=== PATIENT | female | born 1985 | race African-American/Black ===

== ENCOUNTER 2018-01-12 14:37 | Emergency (ER) | payer SELFPAY ==
[~2018-01-12 14:37] MED LIST: ISOVUE-370 76%-LOCM 1 ML ONE
[2018-01-12 15:05] LABS: Hemoglobin 7.9 g/dL (12.0-16.0); Mean Corpuscular HGB CONC 28.7 g/dL (32.0-36.0); Mean Corpuscular Volume 62.8 fL (78.0-98.0); Mean Platelet Volume 6.7 fL (7.4-10.4); Platelet Count 356 thou/uL (130-400); RBC Distribution Width 20.1 % (11.5-14.5); Red Blood Cell (RBC) Count 4.36 mill/uL (4.20-5.40); White Blood Cell (WBC) Count 6.2 thou/uL (4.8-10.8)
[2018-01-12 15:14] LABS: Bilirubin Negative (Negative); Blood, Urine Moderate (Negative); Clarity CLOUDY (Clear); Glucose, Urine (Dipstick) Negative (Negative); Leukocyte Negative (Negative); Nitrite Negative (Negative); Protein, Urine (Dipstick) Negative (Neg-Trace); Urobilinogen 0.2 mg/dL (0.2-1.0); pH, Urine 7.5 (5.0-9.0)
[2018-01-12 15:16] LABS: Hyaline Casts/LPF 0-3 HYALINE CAST LPF (0-3 Hyaline); Pathc Cast-AUWi Flag 0.72 (0-2.49)
[2018-01-12 15:26] LABS: Acanthocytes SLIGHT = 1-5 cells (100X) (None Seen); Anisocytosis SLIGHT = 6-15 cells (100X) (0-5/hpf); Elliptocytes SLIGHT = 2-5 cells (100X) (0-1/hpf); Eosinophils 3 % (0-10); Hypochromia MODERATE=16-30 cells (100X) (0-5/hpf); Lymphocytes 54 % (21-51); MDiff Complete? YES; Microcytosis MODERATE=15-30 cells (100X) (0-5/hpf); Monocytes 4 % (0-10); Neutrophil 39 % (42-75); PLT Morphology Comment Appears Adequate; Poikilocytosis SLIGHT = 6-15 cells (100X) (0-5/hpf)
[2018-01-12 15:36] LABS: Bacteria/HPF 2+ HPF (None Seen); RBC/HPF 0-3 HPF (0-3); Yeast-All Forms None Seen HPF (None Seen)
[2018-01-12 15:48] LABS: ALT (SGPT) 11 U/L (8-55); AST (SGOT) 13 U/L (5-34); Albumin 4.1 g/dL (3.5-5.0); Alkaline Phosphatase 80 U/L (40-150); Anion Gap 11 mmol/L (10-20); BUN (Urea Nitrogen) 10 mg/dL (7.0-18.7); Bilirubin, Total 0.2 mg/dL (0.2-1.2); Calc. Creatinine Clearance 0 mL/min (70-130); Calcium 10.7 mg/dL (7.8-10.44); Carbon Dioxide 19 mmol/L (22-29); Chloride 113 mmol/L (98-107); Estimated GFR-MDRD Greater than 90; Globulin 3.9 g/dL (2.4-3.5); Glucose 92 mg/dL (70-105); Potassium 3.5 mmol/L (3.5-5.1); Sodium 139 mmol/L (136-145)
--- NOTE | 2018-01-12 17:46 | ULT ---
PELVIC ULTRASOUND History: Vaginal bleeding with black discharge, starting suddenly after work yesterday. Adnexal pain. Positive test three weeks ago. Serum Beta HG is less than 1.2 Technique: Transabdominal and endovaginal imaging of the pelvis is performed. Ovaries are interrogate d with grayscale, color flow, doppler imaging, and spectral waveform analysis. FINDINGS: Uterus is identified, measuring 8.2 x 9.2 x 11.5 cm. Endometrium is not adequately access. There does appear to be a solid structure or mass like structure in the uterine fundus measuring approximately 6.5 x 5.5 x 7.8 cm. Left ovary is not appreciated. No masses or fluid in the left adnexa. In the right adnexa there is an anechoic focus measuring 5.2 x 4.2 x 5.5 cm. Right ovarian cyst is fa vored. Overall, the right ovary measures 4.4 x 6.6 x 6.0 cm. Small amount of free fluid in the cul-de-sac. IMPRESSION: 1. Soft tissue mass noted in the uterine fundus. Correlate for uterine leiomyoma. 2. Heterogeneous appearance of the endometrium, secondary to aforementioned fundal mass. No definite evidence of a gestational sac, yolk sac, or pole. Correlate with follow up ultrasound and seria l Beta HCGs. 3. Right ovarian cyst. Follow up ultrasound to ensure resolution in 4-6 weeks. POS: [facility]
--- NOTE | 2018-01-12 19:42 | CT ---
CT ABDOMEN AND PELVIS WITH CONTRAST: History: Positive test three weeks ago. Serum Beta HCG less than 1.2. Abnormal pelvic ultra sound. Possible uterine mass. Right ovarian cyst. Correlation: Pelvic ultrasound, 01-12-18 FINDINGS: Dependent atelectatic changes. Normal heart size. No significant paracardial fluid. Visualized aorta has a normal caliber. No fat stranding. Portal vein is patent. The liver, spleen, pancreas and adrenal glands have appropriate enhancement. Symmetric enhancement of the kidneys. Bilaterally, no obstructive uropathy. Tiny umbilical hernia containing mesenteric fat. No gastrohepatic, retrocrural or periportal lymphadenopathy. No mesenteric mass, lymphadenopathy, free air or free fluid. Limited evaluation of the alimentary canal due to lack of oral contrast. Gastric mucosa, duodenum and multiple normal caliber small bowel loops are noted. Ileocecal junction is normal. Normal caliber ap pendix. Scattered fecal material in a nondistended, nondilated colon. PELVIC CT: There is an enhancing heterogenous solid mass in the uterine fundus measuring 7.4 cm craniocaudal x 6 .3 cm mediolateral x 7.4 cm anterior posterior. Uterine leiomyoma is favored. There appears to be pierre e fluid in the lower uterine segment. Left adnexa is unremarkable. Right ovarian cyst is noted. Unremarkable urinary bladder. IMPRESSION: 1. Enhancing solid mass in the uterine fundus, likely representing a leiomyoma. 2. Right ovarian cyst. 3. Normal caliber appendix. POS: [facility]
[2018-01-13 22:04] LABS: Chlamydia by PCR Not Detected (NotDetected); GC by PCR Not Detected (NotDetected)
== END 2018-01-12 19:56 | disposition home or self-care (01) ==
LOC: ERS 14:37
DX: N76.0 Acute vaginitis (principal); N83.201 Unspecified ovarian cyst, right side; N85.8 Other specified noninflammatory disorders of uterus; F17.210 Nicotine dependence, cigarettes, uncomplicated
CPT/HCPCS: 36415; 74177; 76856; 80053; 81003; 81015; 84702; 85025; 85060; 86850; 86900; 86901; 87480; 87491; 87510; 87591; 87660

== ENCOUNTER 2018-05-24 16:37 | Observation (INO) | payer SELFPAY ==
[2018-05-24 20:10] VITALS: BMI 38.8
[2018-05-24] MEDS ORDERED: Acetaminophen 500 MG TAB PO PRN (21:37)
[2018-05-24] MEDS ORDERED: Ondansetron ODT 4 MG TAB PO PRN (21:37)
[2018-05-24] MEDS ORDERED: Ondansetron PF 4 MG/2 ML Vial IVP PRN (21:37)
[2018-05-25] MEDS: Sodium Chloride 0.9% 1,000 ML IV SCH ×2 (00:39→13:00)
--- NOTE | 2018-05-25 01:18 | HP ---
PRIMARY CARE PROVIDER: Maximilian Yi. CHIEF COMPLAINT: Dizziness and vaginal bleeding. HISTORY OF PRESENT ILLNESS: This is a 33-year-old female, who initially presented to [facility] complaining of increasing dizziness over the last 24 to 48 hours while standing. The patient also noted heavy vaginal bleeding at the end of her regular menses, passing large clots. The patient states she has had irregular menstrual cycles starting in November 2017, continuing into early 2018. The patient states she does not have typical 4-week break between cycles and has bleeding every couple of weeks, lasting 5 days or more. The patient admits to a history of anemia, and states her hemoglobin had been in the 9 to 10 range previously, but did not take any iron supplementation or receive any previous blood transfusions. The patient states she has had 3 pregnancies with section deliveries, most recently in 2010; at which time, she underwent tubal ligation. The patient denied any recent vaginal trauma, dysuria, or difficulty with bowel movements. The patient denied any cough, fever, history of sexually transmitted diseases, vaginal discharge other than the blood. In the emergency room, the patient was evaluated with a hemoglobin noted at 6.1 with an MCV of 64. The patient was typed and crossed and initiated on 1 unit of packed red blood cells with a second unit of packed red blood cells hanging currently. Serum beta-hCG was negative. PAST MEDICAL HISTORY: 1. Chronic anemia. 2. Tobacco use. PAST SURGICAL HISTORY: Status post section x3, last performed 2010 with bilateral tubal ligation. CURRENT MEDICATIONS: Reviewed and negative. ALLERGIES: NO KNOWN DRUG ALLERGIES. FAMILY HISTORY: No inheritable disease per the patient's report. SOCIAL HISTORY: The patient resides in [place], [place]. Works for [employer]. Smokes up to half a pack of cigarettes daily. Occasional alcohol use. No illicit drug use. Functional of all activities of daily living. REVIEW OF SYSTEMS: CONSTITUTIONAL: Negative for weight loss or gain, ability to conduct usual activities. SKIN: Negative for rash, itching. EYES: Negative for double vision, pain. ENT/MOUTH: Negative for nose bleeding, neck stiffness, pain, tenderness. CARDIOVASCULAR: Negative for palpitations, dyspnea on exertion, orthopnea. RESPIRATORY: Negative for shortness of breath, wheezing, cough, hemoptysis, fever or night sweats. GASTROINTESTINAL: Negative for poor appetite, abdominal pain, heartburn, nausea, vomiting, constipation, or diarrhea. GENITOURINARY: Negative for urgency, frequency, dysuria, nocturia. MUSCULOSKELETAL: Negative for pain, swelling. NEUROLOGIC/PSYCHIATRIC: Negative for anxiety, depression. ALLERGY/IMMUNOLOGIC: Negative for skin rash, bleeding tendency. Otherwise, negative except as stated per HPI. PHYSICAL EXAMINATION: VITAL SIGNS: On admission, blood pressure 146/87, pulse 83, respiratory rate 19, temperature 98 degrees Fahrenheit, and O2 saturation 99% on room air. GENERAL APPEARANCE: This is a 33-year-old female, alert and oriented x3, pleasant, conversant, in no acute distress. HEENT: Pupils are equal, round, reactive to light and accommodation. Extraocular muscles are intact. Mild conjunctival pallor. Nares patent. OP is clear. Teeth in fair repair. NECK: Supple. No cervical adenopathy. No thyromegaly. No carotid bruits. No JVD appreciated. Cervical spine with full active and passive range of motion. No meningeal signs noted. CHEST: Lungs are clear to auscultation bilaterally. CARDIOVASCULAR: S1 and S2 without noted murmur, rub, or gallop. ABDOMEN: Rounded, soft, nontender, and nondistended. Bowel sounds are positive in all 4 quadrants. There is no hepatosplenomegaly. No abdominal bruits. No rebound or guarding appreciated. PELVIC: Reported from the emergency room showed blood at the introitus. No evidence of external injury. EXTREMITIES: Warm and dry with fair turgor. No clubbing, cyanosis, or asymmetric edema appreciated. Pulses are palpable distally at the dorsalis pedis, posterior tibial, and popliteal arteries bilaterally. Capillary refill less than 2 seconds. NEUROLOGIC: Cranial nerves 2 through 12 are grossly intact. No focal or lateralizing signs appreciated. PERTINENT LAB AND X-RAY FINDINGS: Sodium 138, potassium 4.0, chloride 110, CO2 of 20, BUN 8, creatinine 0.65, estimated GFR greater than 90, glucose 86, calcium 10.3. LFTs within normal limits. Serum beta-hCG negative on 05/24/2018. CBC showed a white blood cell count of 5.4, hemoglobin 6.1, hematocrit 22, MCV 64, platelet count 416, with normal differential. PT is 13.8, INR 1.1, PTT 34.2. EKG dated 05/24/2018 by my interpretation shows sinus mechanism with heart rates in the 60s. Normal R-wave progression noted in the precordial leads. Normal axis. No acute ST-T wave changes appreciated. ASSESSMENT AND PLAN: 1. Acute blood loss anemia. The patient will be placed in observation status. Secondarily to #2. Type and cross for 2 units of packed red blood cells. Serial hemoglobin and hematocrit monitoring. Check iron studies and ferritin in the a.m. 2. Menorrhagia. Suspect secondary to uterine fibroid. The patient with a history of uterine fibroid noted several years prior to this evaluation. We will consult [employer]PER[employer] Service for further evaluation. Check pelvic ultrasound. Serum beta-hCG negative. See above for management. 3. Symptomatic anemia. See #1 and #2. We will continue transfusion of packed red blood cells. Continue intravenous normal saline at 100 mL/h. 4. Tobacco use. We will offer smoking cessation resources prior to discharge. 5. Prophylaxis. SCDs while in bed. Pepcid 20 mg p.o. b.i.d. 6. Code status is full. Surrogate medical decision maker is Isaura Huston. Job ID: [id number]
[2018-05-25 05:47] LABS: Band 6 % (5-11); Elliptocytes SLIGHT = 2-5 cells (100X) (0-1/hpf); Eosinophils 1 % (0-10); Hemoglobin 8.4 g/dL (12.0-16.0); Hypochromia MODERATE=16-30 cells (100X) (0-5/hpf); Iron 25 ug/dL (50-170); Iron Binding Capacity, Total 425 mcg/dL (265-497); Lymphocytes 40 % (21-51); MDiff Complete? YES; Mean Corpuscular HGB CONC 30.5 g/dL (32.0-36.0); Mean Corpuscular Hemoglobin 21.5 pg (27.0-31.0); Mean Corpuscular Volume 70.5 fL (78.0-98.0); Mean Platelet Volume 11.2 fL (7.4-10.4); Microcytosis SLIGHT = 6-15 cells (100X) (0-5/hpf); Monocytes 5 % (0-10); Neutrophil 48 % (42-75); Platelet Count 368 thou/uL (130-400); Platelet Morphology Comment Appears Adequate; RBC Distribution Width 21.2 % (11.5-14.5)
[2018-05-25 05:49] LABS: Anion Gap 11 mmol/L (10-20); BUN (Urea Nitrogen) 12 mg/dL (7.0-18.7); Calc. Creatinine Clearance 197 mL/min (70-130); Carbon Dioxide 19 mmol/L (22-29); Chloride 109 mmol/L (98-107); Estimated GFR-MDRD Greater than 90; Glucose 95 mg/dL (70-105); Iron 26 ug/dL (50-170); Iron Binding Capacity, Total 428 mcg/dL (265-497); Potassium 3.8 mmol/L (3.5-5.1); Sodium 135 mmol/L (136-145)
[2018-05-25] MEDS ORDERED: Ferrous Sulfate 325 MG TAB PO SCH (08:00)
[2018-05-25] MEDS ORDERED: Famotidine 20 MG TAB PO SCH (09:00)
--- NOTE | 2018-05-25 09:32 | PDOC.FPROB ---
FMR OB H&P: HPI - History of Present Illness Chief Complaint: CONSULT NOTE History of Present Illness: 33 yo f presents as a transfer from [facility] for symptomatic anemia and abnormal uterine bleeding. She endorses irregular and heavy menses and states that the past two days she has passed golf ball sized clots. Yesterday she started feeling dizzy, which is why she went to the [facility] ER. She reports that she went two months from November to January without a period, and in January developed heavy bleeding and at that time had a pelvic us done which showed a fibroid. Since that time she has been bleeding on and off without longer than 2 wks of a true break in her cycle. Today she states her bleeding is improved, and is light/minimal. She was able to ambulate today and eat breakfast and doesn 't feel dizzy this morning. She has had 2u prbcs. 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: irregular menses/AUB uterine fibroid - Surgical History Sx History: see ob hx - Social History Social History: smokes a pack every 3 days, occasional alcohol use, denies drug use - Family History Family History: denies family hx of ovarian/uterine/breast cancer FMR OB H&P: Medications - Current Home Medications: Medication Instructions Recorded Confirmed Type Ferrous Sulfate [Feosol] 325 mg PO BID- #60 tab 05/25/18 Rx medroxyPROGESTERone Acetate 10 mg PO DAILY #20 tab 05/25/18 Rx [Provera] Allergies/Adverse Reactions: Allergies Allergy/AdvReac Type Severity Reaction Status Date / Time No Known Drug Allergies Allergy Verified 05/24/18 20:08 FMR OB H&P: ROS - Review of Systems General: denies: fever/chills, weight/appetite/sleep changes ENT: denies: nasal congestion, rhinorrhea Respiratory: denies: cough, congestion, shortness of breath Gastrointestinal: denies: abdominal pain, nausea, vomiting, diarrhea Genitourinary (Female): reports: hematuria, vaginal bleeding. denies: contractions Neurologic: reports: weakness, other (dizziness) Breast: denies: bumps, skin changes Endocrine: denies: cold intolerance, heat intolerance Hematologic/Lymphatic: reports: prolonged or excessive bleeding Psychological: denies: depression, anxiety FMR OB H&P: Vital Signs - Maternal Vital signs: Vital Signs - First Documented Temp Pulse Resp BP Pulse Ox 97.7 F 77 15 107/62 95 05/24/18 19:58 05/24/18 19:58 05/24/18 19:58 05/24/18 19:58 05/24/18 19:58 Selected Entries 05/25/18 08:00 Temperature 97.9 F Pulse Rate 58 L Respiratory 16 Rate O2 Sat by Pulse 99 Oximetry Oxygen Delivery Room Air Method FMR OB H&P: Physical Exam - Physical Exam General: NAD, awake, alert and oriented HEENT: normocephalic and atraumatic, PERRLA Neck: supple Deviation from normal: NSR Deviation from normal: no increased work of breathing Abdomen: soft Deviation from normal: ~16wk uterus, fundal fibroid present on exam; mild tenderness to palpation Skin: no rash, capillary refill <2 seconds Lymphatic: no unusual bruising or bleeding, no purpura Psychiatric: intact recent and remote memory, good judgement and insight FMR OB H&P: Results - Labs Lab results: Laboratory Results - last 24 hr 05/24/18 05/25/18 05/25/18 20:01 04:30 04:30 WBC 7.0 RBC 3.90 L Hgb 8.4 L Hct 27.5 L MCV 70.5 L MCH 21.5 L MCHC 30.5 L RDW 21.2 H Plt Count 368 MPV 11.2 H Neutrophils % (Manual) 48 Band Neuts % (Manual) 6 Lymphocytes % (Manual) 40 Monocytes % (Manual) 5 Eosinophils % (Manual) 1 Hypochromia MODERATE=16-30 cells H Plt Morphology Comment Appears Adequate Microcytosis SLIGHT = 6-15 cells Elliptocytes SLIGHT = 2-5 cells Sodium 135 L Potassium 3.8 Chloride 109 H Carbon Dioxide 19 L Anion Gap 11 BUN 12 Creatinine 0.63 Estimated GFR (MDRD) Greater than 90 Glucose 95 Calcium 10.0 Iron 26 L TIBC 428 % Saturation Ferritin Blood Type O POSITIVE Antibody Screen NEGATIVE Crossmatch See Detail 05/25/18 05/25/18 04:30 04:30 WBC RBC Hgb Hct MCV MCH MCHC RDW Plt Count MPV Neutrophils % (Manual) Band Neuts % (Manual) Lymphocytes % (Manual) Monocytes % (Manual) Eosinophils % (Manual) Hypochromia Plt Morphology Comment Microcytosis Elliptocytes Sodium Potassium Chloride Carbon Dioxide Anion Gap BUN Creatinine Estimated GFR (MDRD) Glucose Calcium Iron 25 L TIBC 425 % Saturation 6 L Ferritin 5.58 L Blood Type Antibody Screen Crossmatch Other labs: Laboratory Tests 05/24/18 13:24 Hgb 6.1 L Hct 21.6 L FMR OB H&P: A/P - Problem List (1) Symptomatic anemia Status: Acute Code(s): D64.9 - ANEMIA, UNSPECIFIED (2) Abnormal uterine bleeding Status: Acute Code(s): N93.9 - ABNORMAL UTERINE AND VAGINAL BLEEDING, UNSPECIFIED (3) Uterine fibroid Status: Acute Code(s): D25.9 - LEIOMYOMA OF UTERUS, UNSPECIFIED Discussion: Date/Time: 05/25/18 0927 33 yo f presents with irregular/heavy menstruation admitted for symptomatic anemia and abnormal uterine bleeding 2/2 uterine fibroid. #Symptomatic Anemia- -Suspected d/t AUB from pt's fibroid. Pt s/p 2 units prbcs with initial H/H of 6.1/21.6 and repeat of 8.4/27.5. Pt improved and asymptomatic this morning. 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 Dispo: plan for dc this pm with close follow-up outpatient regarding AUB/fibroid Code: FULL This H&P was discussed with Dr. Arzola who agree with the above documentation and plan. Addendum - Attending - Attending Attestation Date/Time: 05/25/18 182 I personally evaluated the patient and discussed the management with Dr. Clemons. I agree with the History, Examination, Assessment and Plan documented above with any addition or exceptions noted below. Ultrasound results stable from prior US. Follow up outpatient for management.
--- NOTE | 2018-05-25 11:48 | ULT ---
FPelvic ultrasound: 05/25/2018 COMPARISON: 01/12/2018 HISTORY: Uterine fibroid disease, vaginal bleeding requiring transfusions TECHNIQUE: Multiplanar grayscale sonographic imaging of the pelvis is obtained with transabdominal an d endovaginal imaging. The ovaries are assessed with color flow and spectral analysis FINDINGS: The uterus measures 12.2 x 7.7 x 13.7 cm. There is a large heterogeneously hypoechoic solid mass associated with the posterior uterine body which is centered within the myometrium but has a carlos bmucosal component which abuts the posterior aspect of the endometrium, which is distorted. This lesi on suggests a uterine fibroid, measuring in the 6.7 x 6.6 cm range, similar when compared to the prio r examination. The endometrium is difficult to accurately measure secondary to distortion. No significant free fluid is noted in the pelvis. Blood flow appears present within the right ovary. Blood flow could not be documented within the left ovary, likely secondary to location and patient's size as the left ovary is normal in size and demonstrates no adjacent fluid. Left ovary measures appr oximately 2.0 x 3.1 x 2.3 cm right ovary measures approximately 3.1 x 3.6 x 2.2 cm. IMPRESSION: Large solid lesion associated with the uterine body consistent with a large fibroid, rainer lar in size when compared to prior imaging. This abuts and distorts the posterior aspect of the endom etrium.
[2018-05-25 14:18] LABS: Hemoglobin 9.2 g/dL (12.0-16.0)
[2018-05-25 15:55] VITALS: BP 129/62; TEMP 98
== END 2018-05-25 17:15 | disposition home or self-care (01) ==
LOC: 2SW 18:26
PROVIDERS: ADMIT Internal Medicine; ATTEND Internal Medicine
DX: D62 Acute posthemorrhagic anemia (principal); D25.9 Leiomyoma of uterus, unspecified; F17.210 Nicotine dependence, cigarettes, uncomplicated; Z98.51 Tubal ligation status; Z79.52 Long term (current) use of systemic steroids; Z79.899 Other long term (current) drug therapy; Z98.890 Other specified postprocedural states
CPT/HCPCS: 36415; 76856; 80048; 82728; 83540; 83550; 85007; 85027; 86850; 86900; 86901; 96360; 96361; G0378; P9016

== ENCOUNTER 2023-11-12 21:11 | Observation (INO) | payer OTHER ==
[2023-11-12] MEDS ORDERED: Acetaminophen 325 MG TAB ONE (22:57)
[2023-11-12 23:28] LABS: #Basophils 0.06 10x3/uL (0.0-0.2); %Basophils 1.1 % (0.0-1.0); %Eosinophils 4.3 % (0.0-10.0); %Monocytes 9.2 % (0.0-10.0); %Neutrophils 37.2 % (42.0-75.0); Hematocrit 23.1 % (36.0-47.0); Hemoglobin 6.6 g/dL (12.0-16.0); Mean Corpuscular HGB CONC 28.6 g/dL (32.0-36.0); Mean Corpuscular Hemoglobin 20.1 pg (27.0-31.0); Mean Corpuscular Volume 70.2 fL (78.0-98.0); Mean Platelet Volume 10.7 fL (7.4-10.4); Platelet Count 347 10x3/uL (130-400); RBC Distribution Width 20.7 % (11.5-14.5); Red Blood Cell (RBC) Count 3.29 mill/uL (4.20-5.40)
[2023-11-13 00:04] LABS: Anisocytosis SLIGHT = 6-15 cells HPF (0-5); Hypochromia SLIGHT = 6-15 cells HPF (0-5); Microcytosis SLIGHT = 6-15 cells HPF (0-5); Platelet Adequacy Comment Platelets Normal
[2023-11-13 01:52] LABS: BHCG - Serum Negative (NEGATIVE); Pregs Control Background? CLEAR/WHITE (CLR/WHITE); Pregs Control Bar Appear? YES (CONTROL BAR)
[2023-11-13] MEDS ORDERED: Acetaminophen 650 MG Suppository PR PRN (02:28)
[2023-11-13] MEDS ORDERED: Acetaminophen 325 MG TAB PO PRN (02:28)
[2023-11-13] MEDS ORDERED: Ondansetron PF 4 MG/2 ML Vial IVP PRN (02:28)
[2023-11-13] MEDS ORDERED: Ondansetron ODT 4 MG TAB PO PRN (02:28)
[2023-11-13 03:53] VITALS: BMI 36.0
[2023-11-13 07:44] LABS: #Basophils 0.05 10x3/uL (0.0-0.2); %Basophils 1.1 % (0.0-1.0); %Eosinophils 5.6 % (0.0-10.0); %Lymphocytes 44.4 % (21.0-51.0); %Neutrophils 38.7 % (42.0-75.0); Hematocrit 24.2 % (36.0-47.0); Hemoglobin 7.3 g/dL (12.0-16.0); Mean Corpuscular HGB CONC 30.2 g/dL (32.0-36.0); Mean Corpuscular Hemoglobin 21.3 pg (27.0-31.0); Mean Corpuscular Volume 70.8 fL (78.0-98.0); Mean Platelet Volume 10.6 fL (7.4-10.4); Platelet Count 324 10x3/uL (130-400); RBC Distribution Width 21.9 % (11.5-14.5); Red Blood Cell (RBC) Count 3.42 mill/uL (4.20-5.40)
[2023-11-13 08:04] LABS: Anion Gap 7 mmol/L (10-20); BUN (Urea Nitrogen) 8 mg/dL (7.0-18.7); Calc. Creatinine Clearance 177 mL/min (70-130); Carbon Dioxide 19 mmol/L (22-29); Chloride 116 mmol/L (98-107); Estimated GFR 118; Glucose 99 mg/dL (70-105); Potassium 3.5 mmol/L (3.5-5.1); Sodium 138 mmol/L (136-145)
[2023-11-13] MEDS: Apixaban 5 MG TAB PO SCH (08:28)
[2023-11-13 10:13] LABS: ALT (SGPT) 11 U/L (8-55); AST (SGOT) 14 U/L (5-34); Albumin 3.1 g/dL (3.5-5.0); Alkaline Phosphatase 66 U/L (40-110); Anion Gap 9 mmol/L (10-20); BUN (Urea Nitrogen) 8 mg/dL (7.0-18.7); Bilirubin, Total 0.7 mg/dL (0.2-1.2); Calc. Creatinine Clearance 171 mL/min (70-130); Calcium 10.1 mg/dL (7.8-10.44); Carbon Dioxide 21 mmol/L (22-29); Chloride 113 mmol/L (98-107); Estimated GFR 117; Globulin 3.2 g/dL (2.4-3.5); Glucose 97 mg/dL (70-105); Iron 116 ug/dL (50-170); Iron Binding Capacity, Total 370 mcg/dL (265-497); Potassium 3.6 mmol/L (3.5-5.1); Protein, Total 6.3 g/dL (6.0-8.3); Sodium 139 mmol/L (136-145)
[2023-11-13] MEDS: Sodium Ferric Gluconate 250 MG in Sodium Chloride 0.9% 250 ML 250 ML IVPB SCH (17:29)
[2023-11-14 06:22] LABS: #Basophils 0.04 10x3/uL (0.0-0.2); %Basophils 0.6 % (0.0-1.0); %Eosinophils 4.3 % (0.0-10.0); %Lymphocytes 30.8 % (21.0-51.0); %Monocytes 12.1 % (0.0-10.0); %Neutrophils 51.8 % (42.0-75.0); Hematocrit 27.4 % (36.0-47.0); Hemoglobin 8.1 g/dL (12.0-16.0); Mean Corpuscular HGB CONC 29.6 g/dL (32.0-36.0); Mean Corpuscular Hemoglobin 21.3 pg (27.0-31.0); Mean Corpuscular Volume 72.1 fL (78.0-98.0); Mean Platelet Volume 11.2 fL (7.4-10.4); Platelet Count 348 10x3/uL (130-400); RBC Distribution Width 21.2 % (11.5-14.5)
[2023-11-14 11:38] VITALS: BP 113/70; TEMP 97.6
== END 2023-11-14 11:45 | disposition home or self-care (01) ==
LOC: ERS 21:11 → T4-A 11-13 01:57
PROVIDERS: ADMIT Student in an Organized Health Care Education/Training Program; ATTEND Family Medicine
DX: D62 Acute posthemorrhagic anemia (principal); N93.9 Abnormal uterine and vaginal bleeding, unspecified; I82.401 Acute embolism and thrombosis of unspecified deep veins of right lower extremity; D68.59 Other primary thrombophilia; D50.9 Iron deficiency anemia, unspecified; D25.9 Leiomyoma of uterus, unspecified; Z79.01 Long term (current) use of anticoagulants; F17.200 Nicotine dependence, unspecified, uncomplicated; Z79.899 Other long term (current) drug therapy
CPT/HCPCS: 36415; 36430; 80048; 82728; 83540; 83550; 83605; 84703; 85025; 86850; 86900; 86901; G0378; J2916; J7050; P9016